=== PATIENT | male | born 1955 | race Caucasian/White ===

== ENCOUNTER 2022-10-14 10:45 | Day surgery (SDC) | payer MEDICARE, MEDICAID ==
[~2022-10-14] VITALS: Ht 172.7 cm; Wt 81.8 kg
[2022-10-14 11:00] VITALS: BP 138/85
[2022-10-14] MEDS ORDERED: MIDAZolam 1 MG/ML 5ML VIAL ONE (11:01)
[2022-10-14] MEDS ORDERED: FENTANYL CITRATE/PF 50 MCG/1 ML VIAL ONE (11:01)
[2022-10-14] MEDS ORDERED: LOP25T PO (11:22)
[2022-10-14] MEDS ORDERED: OMEP20CA16 PO (11:22)
[2022-10-14] MEDS ORDERED: ATOR40TA71 PO (11:22)
[2022-10-14] MEDS ORDERED: ASPI-611 PO (11:22)
[2022-10-14] MEDS ORDERED: CITA20TA28 PO (11:22)
[2022-10-14 12:22] VITALS: BP 106/66
[2022-10-14 12:32] VITALS: BP 109/64
[2022-10-14 12:42] VITALS: BP 118/72
== END 2022-10-14 12:57 | disposition home or self-care (01) ==
LOC: GI LAB 10:45
PROVIDERS: ATTEND Internal Medicine Gastroenterology
DX: Z08 Encounter for follow-up examination after completed treatment for malignant neoplasm (principal); D12.3 Benign neoplasm of transverse colon; D12.5 Benign neoplasm of sigmoid colon; K64.8 Other hemorrhoids; I10 Essential (primary) hypertension; K57.30 Diverticulosis of large intestine without perforation or abscess without bleeding; Z86.010 Personal history of colon polyps
CPT/HCPCS: 45380; 45385; G0500; J2250; J3010; J7030; Z7512; 88305; 99152; 99153; A4620; C1889